=== PATIENT | female | born 1980 | race Caucasian/White ===

== ENCOUNTER 2021-08-29 22:48 | Emergency (ER) | payer BC ==
[2021-08-29 23:06] VITALS: BP 120/82; PULSE 86; TEMP 98.2; BMI 35.2
[2021-08-30] MEDS ORDERED: MECLIZINE HCL 12.5 MG TABLET PO ONE (00:16)
[2021-08-30] MEDS ORDERED: SODIUM CHLORIDE 1,000 ML IV STA (00:16)
[2021-08-30] MEDS ORDERED: METOCLOPRAMIDE HCL INJECTION 10 MG/2 ML VIAL IVPUSH ONE (00:16)
[2021-08-30] MEDS ORDERED: METOCLOPRAMIDE HCL INJECTION 10 MG/2 ML VIAL ONE (01:09)
[2021-08-30] MEDS ORDERED: MECLIZINE HCL 12.5 MG TABLET ONE (01:09)
[2021-08-30 01:28] LABS: EOS % 1.3 % (0-4.5); HEMATOCRIT 44.8 % (32.4-45.2); HEMOGLOBIN 15.5 GM/dL (10.7-15.3); LYMPH % 39.7 % (8-40); MCH 31.4 pg (25.7-33.7); MCHC 34.5 g/dl (32.0-36.0); MEAN CELL VOLUME 90.8 fl (80-96); MONO % 7.5 % (3.8-10.2); NEUT % 50.5 % (42.8-82.8); PLATELET COUNT 241 10^3/uL (134-434); RBC 4.93 M/mm3 (3.60-5.2); RDW 13.2 % (11.6-15.6); WHITE BLOOD COUNT 6.7 K/mm3 (4.0-10.0)
[2021-08-30 01:51] LABS: ALBUMIN 3.5 g/dl (3.4-5.0); BLOOD UREA NITROGEN 7.9 mg/dL (7-18); MAGNESIUM 2.3 mg/dL (1.8-2.4)
[2021-08-30 01:54] LABS: CREATININE 0.7 mg/dL (0.55-1.3)
[2021-08-30 01:55] LABS: TOT PROT 7.5 g/dl (6.4-8.2)
[2021-08-30 01:56] LABS: BILIRUBIN,TOTAL 0.3 mg/dL (0.2-1)
== END 2021-08-30 02:45 | disposition home or self-care (01) ==
LOC: JER 22:48
PROC: 3E033GC Introduction of Other Therapeutic Substance into Peripheral Vein, Percutaneous Approach (ICD-10-PCS; principal; 2021-08-29)
PROC: 3E0337Z Introduction of Electrolytic and Water Balance Substance into Peripheral Vein, Percutaneous Approach (ICD-10-PCS; 2021-08-29)
DX: R42 Dizziness and giddiness (principal)
CPT/HCPCS: 36415; 80053; 83735; 84703; 85025; 93005; 93010; 99284-25